=== PATIENT | male | born 1990 | race African-American/Black ===

== ENCOUNTER 2017-03-27 09:10 | Outpatient (CLI) | payer BC ==
[2017-03-27 10:05] LABS: PLATELET COUNT 235 K/uL (142-355)
[2017-03-27 10:30] LABS: POTASSIUM 4.1 mmol/L (3.6-5.2); SODIUM 136 mmol/L (136-145)
== END 2017-03-27 10:30 | disposition home or self-care (01) ==
LOC: LABW 09:10
PROVIDERS: Family Medicine
DX: J40 Bronchitis, not specified as acute or chronic (principal); E78.00 Pure hypercholesterolemia, unspecified; E66.8 Other obesity
CPT/HCPCS: 36415; 80053; 80061; 81000; 83735; 84439; 84443; 85027

== ENCOUNTER 2020-09-28 11:18 | Observation (INO) | payer OTHER ==
[2020-10-11 05:58] LABS: PLATELET COUNT 239 K/uL (142-355)
[2020-10-11 05:59] LABS: POTASSIUM 4.4 mmol/L (3.6-5.2)
[2020-10-11 06:04] LABS: PARTIAL THROMBOPLASTIN TIME 26.4 SECONDS (24.5-33.6)
== END 2020-09-29 13:15 | disposition home or self-care (01) ==
LOC: MED/SURG 11:18
PROVIDERS: ADMIT Family Medicine; ATTEND Family Medicine
PROC: 0H9HXZZ Drainage of Right Upper Leg Skin, External Approach (ICD-10-PCS; principal; 2020-09-28)
DX: L02.415 Cutaneous abscess of right lower limb (principal); J20.9 Acute bronchitis, unspecified; E66.01 Morbid (severe) obesity due to excess calories; J45.909 Unspecified asthma, uncomplicated
CPT/HCPCS: 36415; 80053; 81000; 83036; 84443; 85027; 85610; 85730; 87070; 87205; 87635; 99220; G0378; G0379; J2270; J3490; U0003